=== PATIENT | female | born 1935 | race Caucasian/White ===

== ENCOUNTER 2017-02-01 13:39 | Inpatient (IN) | payer MEDICARE ==
[~2017-02-01] VITALS: Ht 154.9 cm; Wt 55.0 kg
[~2017-02-01 13:39] MED LIST: ADV250/50 INH; DUONEB3 ML HHN; HYDROCHLOROTH12.5 MG PO; LEVAQUIN750 MG PO; MEDDP PO; METHOTREXATE2.5 M2 PO; NOR10 PO; PREDNISONE20 MG PO; PROAIR HFA0.09 MG/A1 INH; SPIRIVA18 MC1 INH; TEN50 PO; TENORMIN50 MG PO
[2017-02-01 14:36] LABS: PLATELET COUNT 263 x10^3mcL (130-400)
[2017-02-01 14:41] LABS: RED CELL DISTRIBUTION WIDTH 22.1 % (11.5-14.5)
[2017-02-01 14:48] LABS: ALKALINE PHOSPHATASE 357 U/L (46-116); ALT/SGPT 310 U/L (14-59); AST/SGOT 221 U/L (15-37); BILIRUBIN TOTAL 1.49 mg/dL (0.20-1.00); CALCIUM 9.9 mg/dL (8.5-10.1); CARBON DIOXIDE 25.5 mmol/L (21-32); CHLORIDE SERUM 103 mmol/L (98-107); CREATININE SERUM 1.4 mg/dL (0.6-1.0); GLUCOSE SERUM 106 mg/dL (74-106); POTASSIUM SERUM 4.4 mmol/L (3.5-5.1); SODIUM SERUM 137 mmol/L (136-145)
[2017-02-01 14:50] LABS: ALBUMIN 2.7 g/dL (3.4-5.0); TOTAL PROTEIN, SERUM 5.7 g/dL (6.4-8.2)
[2017-02-01 15:15] LABS: BAND NEUTROPHIL 3 % (0-10); BASOPHIL 0 % (0-2); MONOCYTE 3 % (0-7); SEGMENTED NEUTROPHILS 92 % (37-75)
[2017-02-01 15:16] LABS: rbc morphology (normal/abnorm) ABNORMAL (NORMAL)
[2017-02-01 15:49] LABS: UA SPECIFIC GRAVITY 1.015 (1.005-1.035); microscopic required? YES; urine erythrocyte NEGATIVE (NEGATIVE)
[2017-02-01 15:53] VITALS: BP 103/74
[2017-02-01] MEDS ORDERED: PREDNISONE20 MG PO (16:05)
[2017-02-01] MEDS ORDERED: ALBUTEROL0.63 MG/3 (16:06)
[2017-02-01 17:17] LABS: PHOSPHOROUS 3.5 mg/dL (2.5-4.9)
[2017-02-01 17:28] LABS: FREE T4 1.22 ng/dL (0.76-1.46); FREE THYROXINE INDEX 2.1 ug/dL (1.4-4.5)
[2017-02-01 17:32] LABS: T3 TOTAL 0.7 ng/mL
[2017-02-01 17:54] VITALS: BP 135/87
[2017-02-01 17:57] LABS: CHOLESTEROL/HDL RATIO 2.4
[2017-02-01 18:41] LABS: AMPHETAMINE QUAL UR NONE DETECTED (NEG <=1000)
[2017-02-01 19:30] VITALS: BP 115/62
[2017-02-01 23:00] VITALS: BP 124/100
[2017-02-02 03:24] VITALS: BP 125/70
[2017-02-02 05:42] LABS: PLATELET COUNT 220 x10^3mcL (130-400)
[2017-02-02 05:45] LABS: BASOPHIL % 0 % (0-2); RED CELL DISTRIBUTION WIDTH 22.2 % (11.5-14.5)
[2017-02-02 05:57] LABS: CALCIUM 8.8 mg/dL (8.5-10.1); CARBON DIOXIDE 25.6 mmol/L (21-32); CHLORIDE SERUM 106 mmol/L (98-107); CREATININE SERUM 1.2 mg/dL (0.6-1.0); GLUCOSE SERUM 71 mg/dL (74-106); MAGNESIUM 1.9 mg/dL (1.8-2.4); PHOSPHOROUS 2.9 mg/dL (2.5-4.9); POTASSIUM SERUM 4.7 mmol/L (3.5-5.1); SODIUM SERUM 138 mmol/L (136-145)
[2017-02-02 07:15] VITALS: BP 113/61
[2017-02-02 11:45] VITALS: BP 100/52
[2017-02-02 16:00] VITALS: BP 136/54
[2017-02-02 19:40] VITALS: BP 106/63
[2017-02-03] VITALS: BP 127/60
[2017-02-03 04:00] VITALS: BP 94/61
[2017-02-03 05:36] LABS: PLATELET COUNT 214 x10^3mcL (130-400)
[2017-02-03 05:45] LABS: RED CELL DISTRIBUTION WIDTH 22.2 % (11.5-14.5)
[2017-02-03 05:58] LABS: CALCIUM 9.4 mg/dL (8.5-10.1); CHLORIDE SERUM 105 mmol/L (98-107); CREATININE SERUM 2.1 mg/dL (0.6-1.0); GLUCOSE SERUM 99 mg/dL (74-106); PHOSPHOROUS 5.2 mg/dL (2.5-4.9); SODIUM SERUM 137 mmol/L (136-145)
[2017-02-03 06:08] LABS: BAND NEUTROPHIL 2 % (0-10); MONOCYTE 2 % (0-7); SEGMENTED NEUTROPHILS 95 % (37-75)
[2017-02-03 06:09] LABS: PLATELET MORPHOLOGY PLATELETS NORMAL; ovalocyte/elliptocyte 1+; rbc morphology (normal/abnorm) ABNORMAL (NORMAL); tear drop cell (dacryocyte) 1+
[2017-02-03 06:12] LABS: POTASSIUM SERUM 5.6 mmol/L (3.5-5.1)
[2017-02-03 07:51] VITALS: BP 107/62
[2017-02-03 11:34] VITALS: Ht 154.9 cm; Wt 55.0 kg
[2017-02-03 11:45] VITALS: BP 112/54
[2017-02-03 19:50] VITALS: BP 140/101
[2017-02-04] VITALS (8 sets, daily range): BP systolic 73–129; BP diastolic 34–79
[2017-02-04 05:43] LABS: PLATELET COUNT 189 x10^3mcL (130-400)
[2017-02-04 05:49] LABS: CALCIUM 8.9 mg/dL (8.5-10.1); CARBON DIOXIDE 17.4 mmol/L (21-32); CHLORIDE SERUM 105 mmol/L (98-107); CREATININE SERUM 2.7 mg/dL (0.6-1.0); GLUCOSE SERUM 84 mg/dL (74-106); MAGNESIUM 2.1 mg/dL (1.8-2.4); PHOSPHOROUS 7.2 mg/dL (2.5-4.9); SODIUM SERUM 137 mmol/L (136-145)
[2017-02-04 05:50] LABS: BASOPHIL % 0 % (0-2); RED CELL DISTRIBUTION WIDTH 20.2 % (11.5-14.5)
[2017-02-04 05:53] LABS: POTASSIUM SERUM 6.1 mmol/L (3.5-5.1)
[2017-02-04 14:48] LABS: BILIRUBIN DIRECT 2.3 mg/dL (0.0-0.2); BILIRUBIN TOTAL 3.6 mg/dL (0.20-1.00)
[2017-02-04 14:51] LABS: ALBUMIN 2.5 g/dL (3.4-5.0); TOTAL PROTEIN, SERUM 4.9 g/dL (6.4-8.2)
[2017-02-04 18:40] LABS: CALCIUM 8.1 mg/dL (8.5-10.1); CARBON DIOXIDE 17.3 mmol/L (21-32); CHLORIDE SERUM 105 mmol/L (98-107); CREATININE SERUM 3.7 mg/dL (0.6-1.0); GLUCOSE SERUM 85 mg/dL (74-106); SODIUM SERUM 137 mmol/L (136-145)
[2017-02-04 18:45] LABS: POTASSIUM SERUM 6.8 mmol/L (3.5-5.1)
== END 2017-02-04 19:25 | disposition expired | DRG 308 ==
LOC: ED 13:39 → IC 15:38 → DU 15:38 → IC 17:38 → DU 02-04 10:40
PROVIDERS: Emergency Medicine; Internal Medicine; Internal Medicine Cardiovascular Disease; ADMIT Family Medicine
PROC: 0DH63UZ Insertion of Feeding Device into Stomach, Percutaneous Approach (ICD-10-PCS; principal; 2017-02-03 12:30)
DX: I48.91 Unspecified atrial fibrillation (principal); N17.0 Acute kidney failure with tubular necrosis; E43 Unspecified severe protein-calorie malnutrition; I50.43 Acute on chronic combined systolic (congestive) and diastolic (congestive) heart failure; N39.0 Urinary tract infection, site not specified; C34.92 Malignant neoplasm of unspecified part of left bronchus or lung; C78.7 Secondary malignant neoplasm of liver and intrahepatic bile duct; I13.0 Hypertensive heart and chronic kidney disease with heart failure and stage 1 through stage 4 chronic kidney disease, or unspecified chronic kidney disease; R65.10 Systemic inflammatory response syndrome (SIRS) of non-infectious origin without acute organ dysfunction; I11.0 Hypertensive heart disease with heart failure; J44.9 Chronic obstructive pulmonary disease, unspecified; N18.9 Chronic kidney disease, unspecified; D63.0 Anemia in neoplastic disease; D32.0 Benign neoplasm of cerebral meninges; M19.90 Unspecified osteoarthritis, unspecified site; Z66 Do not resuscitate; Z51.5 Encounter for palliative care; Z68.20 Body mass index [BMI] 20.0-20.9, adult; Z87.891 Personal history of nicotine dependence
CPT/HCPCS: 43235; 80307; 83880; 84439; 92610-GN; 94150; 97110-GP; 97116-GP; 97530-GP; C9113; J0461; J1200; J1265; J1610; J1940; J1956; J2060; J2250; J2270; J2310; J2405; J3010; J3490; J7030; J7040; J7042; J7050; J7512; J7620; J7626; J8597; P9016; P9047; Q0092